=== PATIENT | male | born 1950 | race Caucasian/White ===

== ENCOUNTER 2017-04-10 17:57 | Emergency (ER) | payer OTHER, MEDICARE ==
[~2017-04-10] VITALS: Ht 182.9 cm; Wt 68.0 kg
[2017-04-10] MEDS ORDERED: GLUCOSA-CHOND-1 EACH PO (18:12)
[2017-04-10] MEDS ORDERED: VITAMIN C500 MG PO (18:12)
== END 2017-04-10 18:23 | disposition home or self-care (01) ==
LOC: ED 17:57
DX: S00.03XA Contusion of scalp, initial encounter (principal); I10 Essential (primary) hypertension; Z79.899 Other long term (current) drug therapy; Z98.890 Other specified postprocedural states; V89.2XXA Person injured in unspecified motor-vehicle accident, traffic, initial encounter
CPT/HCPCS: 99282